=== PATIENT | female | born 1940 | race Caucasian/White ===

== ENCOUNTER 2024-11-17 17:30 | Emergency (ER) | payer MEDICARE | END 2024-11-17 20:24 | disposition home or self-care (01) | LOC: JP.ED 17:30 | DX: S42.252A Displaced fracture of greater tuberosity of left humerus, initial encounter for closed fracture (principal); Z79.899 Other long term (current) drug therapy; Z79.890 Hormone replacement therapy; W01.198A Fall on same level from slipping, tripping and stumbling with subsequent striking against other object, initial encounter; Y93.01 Activity, walking, marching and hiking | CPT/HCPCS: 73030-26-LT; 73030-LT; 99283 ==